=== PATIENT | female | born 1960 | race Caucasian/White ===

== ENCOUNTER 2017-10-26 14:12 | Inpatient (IN) ==
--- NOTE | 2017-10-26 14:54 | Emergency Department Note ---
Disposition Clinical Impression: Pneumonia Qualifiers: Pneumonia type: due to unspecified organism Laterality: right Lung location: lower lobe of lung Qualified Code(s): J18.1 - Lobar pneumonia, unspecified organism Urinary tract infection Qualifiers: Urinary tract infection type: acute cystitis Hematuria presence: without hematuria Qualified Code(s): N30.00 - Acute cystitis without hematuria Disposition: Admitted As Inpatient Condition: Fair Referrals: NONE,PCP [Primary Care Provider] - Forms: ED Satisfaction Letter Time of Disposition: 16:25 General Adult HPI - General Chief complaint: ED Upper Respiratory Infection Stated complaint: possible dehydration Time Seen by Provider: 10/26/17 14:28 Source: patient Limitations: no limitations Nursing Notes Reviewed: Yes Vital Signs Reviewed: Yes - History of Present Illness HPI Narrative: 56-year-old who has a history of lymphoma who states that she's not able to eat and keep an or drink and keep anything down. States she has been able to eat for several days. Also had a cough and was diagnosed with bronchitis and given penicillin by the urgent care. States she's not getting any better. Review of the records show the patient does have a B-cell lymphoma and is treated on a monthly basis. Pt Subjective Complaint: Cough, nausea vomiting, fever Onset (ago): day(s) Location: other (Patient states she is achy and generalized pain.) Pain Severity: moderate, severe Pain Scale: 9 Quality: aching Consistency: constant Improves with: nothing Worsens with: nothing Associated symptoms: Reports: cough, nausea/vomiting - Related Data Previous Rx's Medication Instructions Recorded DiphenhydraMINE [Benadryl] 25 mg PO Q6HR #30 capsule 02/03/16 predniSONE [PredniSONE] 60 mg PO DAILY 5 Days tablet 02/03/16 Allergies Allergy/AdvReac Type Severity Reaction Status Date / Time No Known Allergies Allergy Verified 02/02/16 21:24 All systems ED: reviewed and negative except as stated. Constitutional: Reports: fever. Denies: chills, weakness, weight change Eyes: Denies: eye pain, eye discharge, vision change ENT ED: Denies: ear pain, throat pain, dental pain, hearing loss, epistaxis, congestion, dysphagia Cardiovascular: Denies: chest pain, palpitations, dyspnea on exertion, edema, syncope Respiratory: Reports: cough. Denies: dyspnea, wheezes, hemoptysis, stridor Gastrointestinal: Denies: abdominal pain, nausea, vomiting, diarrhea, constipation, hematemesis, melena, hematochezia Genitourinary: Denies: dysuria, frequency, hematuria, discharge Musculoskeletal: Reports: arthralgia. Denies: back pain, neck pain, myalgia Integumentary: Denies: rash, abrasion, lesions Neurological: Denies: headache, weakness, numbness, paresthesias, confusion, abnormal gait, vertigo Psychiatric: Denies: anxiety, depression, suicidal thoughts, homicidal thoughts , auditory hallucinations, visual hallucinations Endocrine: Denies: fatigue Hematological/Lymphatic: Denies: easy bleeding, easy bruising Allergic/Immunologic: Denies: facial swelling, urticaria Past Medical History - Past Medical History Medical history: Reports: cancer, COPD, diabetes Psychiatric history: Reports: depression - Social History Smoking Status: Former smoker Smokeless Tobacco Status: No Alcohol use: Reports: none Drug use: Reports: none Physical Exam - General Limitations: no limitations General appearance: alert - Head Head exam: atraumatic, normocephalic, normal inspection - Eye Eye exam: Present: normal appearance, PERRL, EOMI - ENT ENT exam: normal exam, normal oropharynx, mucous membranes moist - Neck Neck exam: Present: normal inspection, full ROM, trachea midline - Chest Chest inspection: Present: normal inspection, symmetric chest wall rise - Respiratory Respiratory exam: Present: normal lung sounds bilaterally - Cardiovascular Cardiovascular exam: Present: regular rate, normal rhythm, normal heart sounds - Abdominal Exam Abdominal exam: Present: soft, Non-Tender. Absent: tenderness, distention, guarding, rebound, rigidity - Extremities Exam Extremities exam: Present: normal inspection, full ROM. Absent: tenderness, pedal edema - Expanded Lower Extremity Exam Neurovascular/Tendon exam: Absent: motor deficit, sensory deficit, tendon deficit Gait: observed and normal - Back Exam Back exam: Present: normal inspection, full ROM. Absent: tenderness - Neurological Exam Neurological exam: Present: alert, oriented X3 - Psychiatric Psychiatric exam: Present: normal affect, normal mood - Skin Skin exam: Present: warm, dry, intact, normal color Course - Reevaluation(s) Reevaluation #1: 56-year-old with a history of cough and congestion and also nausea vomiting comes in states she was diagnosed with bronchitis. Workup here included a chest x-ray shows a right lower lobe infiltrate she does have what appears to be UTI white count 25,000. Patient treated with IV antibiotics vital signs are stable patient will be admitted. Time: 16:57 Vital Signs Temperature 99.8 F H 10/26/17 14:22 Pulse Rate 119 10/26/17 14:22 Respiratory Rate 18 10/26/17 14:22 Blood Pressure 150/82 10/26/17 14:22 O2 Sat by Pulse Oximetry 88 10/26/17 14:22 Temperature 99.8 F H 10/26/17 14:22 Pulse Rate 119 10/26/17 14:22 Respiratory Rate 18 10/26/17 14:22 Blood Pressure 150/82 10/26/17 14:22 O2 Sat by Pulse Oximetry 88 10/26/17 14:22 Oxygen Delivery Oxygen Delivery Room Air Medical Decision Making - Lab Data Lab results reviewed: Yes I reviewed the patient's lab results. Result diagrams: 10/26/17 15:03 10/26/17 15:03 Lab Results 10/26/17 10/26/17 10/26/17 Range/Units 15:03 15:03 15:03 WBC 25.3 H (4.3-11.1) K/mcL RBC 4.81 (3.82-4.97) M/mcL Hgb 13.2 (11.5-15.4) g/dL Hct 40.0 (35.3-44.9) % MCV 83.2 (83.0-100.0) fL MCH 27.4 L (28.0-33.3) pg MCHC 33.0 (31.6-35.5) g/dL RDW 12.7 (11.5-14.5) % Plt Count 254 (140-400) K/mcL MPV 10.1 (9.4-12.4) fL Seg Neutrophils % 88.0 % Band Neutrophils % 2.0 (0-4) % Lymphocytes % 6.0 % Monocytes % 4.0 % Neutrophils # 22.8 H (1.6-8.9) K/mcL Lymphocytes # 1.5 (0.6-4.6) K/mcL Monocytes # 1.0 (0.0-1.3) K/mcL Nucleated RBCs/100 WBC 0.1 H (0) /100 WBC Reactive Lymphocytes Present A (Not Present) Platelet Estimate Normal (Normal) Sodium 128 L (136-145) mEq/L Potassium 3.8 (3.5-5.1) mEq/L Chloride 87 L (98-107) mEq/L Carbon Dioxide 29 (23-29) mEq/L BUN 8 (6-20) mg/dL Creatinine 0.74 (0.60-1.20) mg/dL Est GFR ( Amer) > 60 (> 60) Est GFR (Non-Af Amer) > 60 (> 60) BUN/Creatinine Ratio 11 (6-26) Glucose 398 H (70-105) mg/dL Calculated Osmolality 281 (280-300) Lactic Acid 1.2 (0.5-2.2) mmol/L Calcium 9.7 (8.6-10.3) mg/dL Total Bilirubin 0.7 (0.3-1.0) mg/dL Direct Bilirubin 0.3 H (0.0-0.2) mg/dL Indirect Bilirubin 0.4 (0.0-1.2) mg/dL AST 24 (13-39) Units/L ALT 39 (7-52) Units/L Alkaline Phosphatase 192 H (34-104) Units/L Troponin I (< 0.04) ng/mL Serum Total Protein 6.6 (6.4-8.9) g/dL Albumin 3.5 (3.5-5.7) g/dL Globulin 3.1 (2.4-3.5) g/dL Albumin/Globulin Ratio 1.1 (1.1-2.2) Amylase < 10 L (29-103) Units/L Lipase 7 L (11-82) Units/L Urine Color (Yellow) Urine Clarity (Clear) Urine pH (5.0-8.0) pH Units Ur Specific [place] (1.010-1.025) Urine Protein (Neg-Trace) mg/dL Urine Glucose (UA) (Normal) mg/dL Urine Ketones (Negative) mg/dL Urine Blood (Negative) Urine Nitrite (Negative) Urine Bilirubin (Negative) Urine Urobilinogen (Normal) mg/dL Ur Leukocyte Esterase (Negative) Urine Microscopic RBC (0-3) per hpf Urine Microscopic WBC (0-3) per hpf Ur Squamous Epith Cells (None-Few) per lpf Urine Bacteria (None-Few) per hpf Hyaline Casts (None-Few) per lpf Ur Culture Indicated? (NO) 10/26/17 10/26/17 Range/Units 15:03 15:31 WBC (4.3-11.1) K/mcL RBC (3.82-4.97) M/mcL Hgb (11.5-15.4) g/dL Hct (35.3-44.9) % MCV (83.0-100.0) fL MCH (28.0-33.3) pg MCHC (31.6-35.5) g/dL RDW (11.5-14.5) % Plt Count (140-400) K/mcL MPV (9.4-12.4) fL Seg Neutrophils % % Band Neutrophils % (0-4) % Lymphocytes % % Monocytes % % Neutrophils # (1.6-8.9) K/mcL Lymphocytes # (0.6-4.6) K/mcL Monocytes # (0.0-1.3) K/mcL Nucleated RBCs/100 WBC (0) /100 WBC Reactive Lymphocytes (Not Present) Platelet Estimate (Normal) Sodium (136-145) mEq/L Potassium (3.5-5.1) mEq/L Chloride (98-107) mEq/L Carbon Dioxide (23-29) mEq/L BUN (6-20) mg/dL Creatinine (0.60-1.20) mg/dL Est GFR ( Amer) (> 60) Est GFR (Non-Af Amer) (> 60) BUN/Creatinine Ratio (6-26) Glucose (70-105) mg/dL Calculated Osmolality (280-300) Lactic Acid (0.5-2.2) mmol/L Calcium (8.6-10.3) mg/dL Total Bilirubin (0.3-1.0) mg/dL Direct Bilirubin (0.0-0.2) mg/dL Indirect Bilirubin (0.0-1.2) mg/dL AST (13-39) Units/L ALT (7-52) Units/L Alkaline Phosphatase (34-104) Units/L Troponin I 0.03 (< 0.04) ng/mL Serum Total Protein (6.4-8.9) g/dL Albumin (3.5-5.7) g/dL Globulin (2.4-3.5) g/dL Albumin/Globulin Ratio (1.1-2.2) Amylase (29-103) Units/L Lipase (11-82) Units/L Urine Color Dark Yellow (Yellow) Urine Clarity Cloudy A (Clear) Urine pH 6.0 (5.0-8.0) pH Units Ur Specific [place] 1.025 (1.010-1.025) Urine Protein 100 H (Neg-Trace) mg/dL Urine Glucose (UA) 500 H (Normal) mg/dL Urine Ketones 80 H (Negative) mg/dL Urine Blood Negative (Negative) Urine Nitrite Negative (Negative) Urine Bilirubin Moderate H (Negative) Urine Urobilinogen Normal (Normal) mg/dL Ur Leukocyte Esterase Small H (Negative) Urine Microscopic RBC 0-3 (0-3) per hpf Urine Microscopic WBC 30-50 H (0-3) per hpf Ur Squamous Epith Cells Many H (None-Few) per lpf Urine Bacteria Few (None-Few) per hpf Hyaline Casts Few (None-Few) per lpf Ur Culture Indicated? NO. (NO) - Radiology Data Radiology results reviewed: Yes I reviewed the patient's radiology results. Chest X-Ray 10/26/17 14:49 IMPRESSION: Right lower lobe pneumonia D/ / Juan Pablo Ferguson MD / Juan Pablo Ferguson MD Interpreting Provider: Juan Pablo Ferguson MD - EKG Data EKG #1 EKG shows normal: sinus rhythm Rate: tachycardia Rhythm: NSR Interpretation: nonspecific ST-T wave changes
[2017-10-26 15:14] LABS: Nucleated Red Blood Cells 0.1 /100 WBC (0)
[2017-10-26 15:15] LABS: Hemoglobin 13.2 g/dL (11.5-15.4); Mean Corpuscular Hemoglobin 27.4 pg (28.0-33.3); Mean Corpuscular Volume 83.2 fL (83.0-100.0); Mean Platelet Volume 10.1 fL (9.4-12.4); Platelet Count 254 K/mcL (140-400); Red Blood Count 4.81 M/mcL (3.82-4.97); Red Cell Distribution Width 12.7 % (11.5-14.5)
[2017-10-26 15:34] LABS: Alanine Aminotransferase 39 Units/L (7-52); Albumin 3.5 g/dL (3.5-5.7); Albumin/Globulin Ratio 1.1 (1.1-2.2); Alkaline Phosphatase 192 Units/L (34-104); Amylase < 10 Units/L (29-103); Aspartate Amino Transferase 24 Units/L (13-39); BUN/Creatinine Ratio 11 (6-26); Bilirubin,Direct 0.3 mg/dL (0.0-0.2); Bilirubin,Indirect 0.4 mg/dL (0.0-1.2); Bilirubin,Total 0.7 mg/dL (0.3-1.0); Blood Urea Nitrogen 8 mg/dL (6-20); Calcium 9.7 mg/dL (8.6-10.3); Carbon Dioxide 29 mEq/L (23-29); Chloride 87 mEq/L (98-107); Globulin 3.1 g/dL (2.4-3.5); Glucose 398 mg/dL (70-105); Lipase 7 Units/L (11-82); Osmolality,Calculated 281 (280-300); Potassium 3.8 mEq/L (3.5-5.1); Sodium 128 mEq/L (136-145); Total Protein 6.6 g/dL (6.4-8.9); eGFR For African Americans > 60 (> 60); eGFR For Non-African Americans > 60 (> 60)
[2017-10-26 15:42] LABS: Bilirubin,Urine Moderate (Negative); Blood,Urine Negative (Negative); Clarity,Urine Cloudy (Clear); Color,Urine Dark Yellow (Yellow); Glucose,Urine (UA) 500 mg/dL (Normal); Ketones,Urine 80 mg/dL (Negative); Leukocyte Esterase,Urine Small (Negative); Nitrite,Urine Negative (Negative); Protein,Urine 100 mg/dL (Neg-Trace); Specific Gravity,Urine 1.025 (1.010-1.025); Urobilinogen,Urine Normal (Normal)
[2017-10-26 15:45] LABS: Bacteria,Urine Few per hpf (None-Few); RBC,Urine 0-3 per hpf (0-3); Squamous Epithelial Cell,Urine Many per lpf (None-Few); WBC,Urine 30-50 per hpf (0-3)
[2017-10-26 15:48] LABS: Lymphocytes # 1.5 K/mcL (0.6-4.6); Neutrophils # 22.8 K/mcL (1.6-8.9); Platelet Estimate Normal (Normal); Reactive Lymphocytes Present (Not Present)
[2017-10-26] MEDS ORDERED: 0.9 % Sodium Chloride 1,000 ML IVC ONE (15:56)
[2017-10-26 15:58] LABS: Hyaline Casts,Urine Few per lpf (None-Few)
[2017-10-26] MEDS ORDERED: cefTRIAXone 1,000 MG in Water for inj. (sterile) 10 ML IVP ONE (16:02)
[2017-10-26] MEDS ORDERED: Piperacillin/Tazobactam 3.375 GM in D5% in Water (Mini-Bag+) 100 ML IVPB ONE (16:22)
[2017-10-26] MEDS ORDERED: Piperacillin/Tazobactam 3.375 GM in Water for inj. (sterile) 20 ML IVP ONE (16:46)
[2017-10-26] MEDS ORDERED: Ondansetron 4 MG/2 ML VIAL IVP PRN (17:30)
[2017-10-26] MEDS ORDERED: Dextrose Gel 15 GM/37.5 ML TUBE PO PRN ×2 (17:30)
[2017-10-26] MEDS ORDERED: Naloxone 0.4 MG/ML INJ IVP PRN (17:30)
[2017-10-26] MEDS ORDERED: *HR* Dextrose 50 % in Water (Syg) 50 ML SYRINGE IVP PRN (17:30)
[2017-10-26] MEDS ORDERED: D5% in Water 1,000 ML IVC PRN (17:30)
[2017-10-26] MEDS ORDERED: *HR* Promethazine 25 MG/ML VIAL IVP PRN (17:30)
[2017-10-26] MEDS ORDERED: ALPRAZolam 0.5 MG TABLET PO PRN (17:35)
--- NOTE | 2017-10-26 17:49 | Internal Med History&Physical ---
<Brandon Napier J - Last Filed: 10/26/17 18:48> Date of Encounter: 10/26/17 Time of Encounter: 17:45 Assessment and Plan (1) Pneumonia Status: Acute Patient has dyspnea, cough and leukocytosis. Shortness of breath and cough has been persistent since October 11. Patient is also immunocompromised with B- cell lymphoma. She wears 3 L nasal cannula, however is not requiring 6 L nasal cannula to maintain O2 saturations greater than 92%. Remains hemodynamically stable Start broad-spectrum antibiotics including vancomycin, Zosyn and ceftriaxone We will start Scheduled bronchodilators to help with shortness of breath and wheezing She does not appear to be in septic shock as artery received 2 L of IV fluid I will continue gentle rehydration 75 ML per hour 0.9% normal saline Blood cultures sent Obtain Urine culture Obtain sputum culture Oxygen at 6 L per mask, weaned to nasal cannula as appropriately and is due to greater than 90% Congestive temperature, continues S PO2 monitoring CBC D, BMP in the a.m. Qualifiers: Pneumonia type: due to unspecified organism Laterality: right Lung location: lower lobe of lung Qualified Code(s): J18.1 - Lobar pneumonia, unspecified organism (2) Sepsis Status: Acute Sepsis secondary to pneumonia and UTI. Starting empiric antibody therapy. The patient is not septic shock replace fluid volume as appropriate. See further plans above Qualifiers: Qualified Code(s): A41.9 - Sepsis, unspecified organism (3) Hypoxia Status: Acute secondary to pna and sepsis. see plan above (4) Urinary tract infection Status: Acute Continue ceftriaxone send urine for culture- follow culture results Qualifiers: Urinary tract infection type: acute cystitis Hematuria presence: without hematuria Qualified Code(s): N30.00 - Acute cystitis without hematuria (5) COPD (chronic obstructive pulmonary disease) Status: Acute Stable. start scheduled bronchodilators Qualifiers: Emphysema type: unspecified Qualified Code(s): J43.9 - Emphysema, unspecified (6) DM (diabetes mellitus) Status: Acute LSSIC with AC/HS accucheck and diabetic diet Qualifiers: Qualified Code(s): E11.9 - Type 2 diabetes mellitus without complications; Z79.4 - terminologist (current) use of insulin; Z79.4 - [facility] (current) use of insulin; Z79.4 - [facility] (current) use of insulin; Z79.4 - terminologist (current ) use of insulin (7) DVT prophylaxis Status: Acute Heparin 5000 units subcutaneous twice a day Internal Medicine - H&P: HPI Chief complaint: Cough, shortness of breath, nausea and vomiting Admitted From: Home Plans for Post Hospital Care: Home History of present illness: Ms. 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 COPD and diabetes. She presents today with a 2 day history of nausea and vomiting, reporting that she is unable to keep food or fluids down. She reports she has had a cough productive of clear sputum and dyspnea for 3 weeks. She admits to postnasal drip, nasal and sinus congestion as well as chest congestion , fever and chills. States that she went to urgent care 2 days ago was diagnosed with bronchitis and given penicillin and sent home. She reports that she has not got any better so she came to the emergency department for further treatment. Workup in the ED included urinalysis which showed small leukoesterase and cloudy urine additionally she received chest x-ray showed right lower lobe pneumonia. Past Med Surg Social Fam HX - Past Medical History Medical history: cancer, COPD, diabetes Psychiatric history: depression - Social History Smoking Status: Former smoker Smokeless Tobacco Status: No Alcohol use: none Drug use: none - Additional Family History Additional family history: She reports a family history of colon cancer but is unsure which family member Internal Medicine - H&P: Meds ALPRAZolam [Xanax 0.5 MG Tablet] 0.5 mg PO HS PRN 10/26/17 [History] Albuterol Sulfate [Ventolin Hfa] 2 puff IH Q6H PRN 10/26/17 [History] Cetirizine HCl [All Day Allergy] 10 mg PO DAILY 10/26/17 [History] Duloxetine HCl [Cymbalta] 60 mg PO DAILY 10/26/17 [History] Insulin ASPART [NovoLOG] 2 - 10 unit SQ TIDWM 10/26/17 [History] Insulin Glargine,Hum.rec.anlog [Lantus Solostar] 60 unit SQ BID 10/26/17 [ History] Levothyroxine Sodium [Levoxyl] 100 mcg PO DAILY 10/26/17 [History] Pantoprazole Sodium [Protonix] 40 mg PO DAILY 12/30/17 [History] Sertraline [Zoloft] 100 mg PO DAILY 10/26/17 [History] Trazodone HCl 100 mg PO HS 10/26/17 [History] metFORMIN [Glucophage] 500 mg PO BID 10/26/17 [History] Benzonatate [Tessalon] 200 mg PO TID PRN #30 capsule 10/30/17 [Rx] levoFLOXacin [Levaquin] 750 mg PO DAILY #7 tablet 10/30/17 [Rx] Calcium Citrate/Vitamin D2 [Calcium with Vit D Tablet] 1 each PO BID #60 tablet 11/15/17 [Rx] Exemestane [Aromasin] 25 mg PO DAILY #30 tablet 11/15/17 [Rx] Facial Mask [Face Mask] 1 each AD #1 pkg 11/15/17 [Rx] GuaiFENesin/Dextromethorphan [Robitussin Cough-Chest Dm Liq] 10 ml PO Q4H PRN # 237 liquid 11/15/17 [Rx] 3 Allergy/AdvReac Type Severity Reaction Status Date / Time No Known Allergies Allergy Verified 11/15/17 14:01 All Systems PM: A 10-system review of systems was performed and is negative for pertinent findings except as documented above in the HPI. Review of systems: REVIEW OF SYSTEMS GENERAL: Negative for any nausea, vomiting, fevers, chills, or weight loss. NEUROLOGIC: Negative for any blurry vision, blind spots, double vision, facial asymmetry, dysphagia, dysarthria, hemiparesis, hemisensory deficits, vertigo, ataxia. HEENT: Negative for any head trauma, neck trauma, neck stiffness, photophobia, phonophobia, sinusitis, rhinitis. CARDIAC: Negative for any chest pain, positive for tachycardia, dyspnea, there is a proximal nocturnal dyspnea and orthopnea PULMONARY: Positive for cough, dyspnea GASTROINTESTINAL: Negative for any abdominal pain, nausea, vomiting, bright red blood per rectum, melena. GENITOURINARY: Negative for any dysuria, hematuria, incontinence. INTEGUMENTARY: Negative for any rashes, cuts, insect bites. RHEUMATOLOGIC: Negative for any joint pains, photosensitive rashes, history of vasculitis or kidney problems. HEMATOLOGIC: Negative for any abnormal bruising, frequent infections or bleeding. - Constitutional Vitals: Temp Pulse Resp BP Pulse Ox 99.8 F H 119 18 150/82 88 10/26/17 14:22 10/26/17 14:22 10/26/17 14:22 10/26/17 14:22 10/26/17 14:22 General appearance: Present: cooperative, A&O X 3, no acute distress, answers questions appropriately Exam: PHYSICAL EXAMINATION: GENERAL: The patient is a well-developed, well-nourished male in no apparent distress. He is alert and oriented x3. VITAL SIGNS: Temperature 98.4, pulse 72, respirations 18, blood pressure 146/78 , and O2 saturation 96% on room air. HEENT: Head is normocephalic and atraumatic. Extraocular muscles are intact. Pupils are equal, round, and reactive to light and accommodation. Nares appeared normal. Mouth is well hydrated and without lesions. Mucous membranes are moist. Posterior pharynx clear of any exudate or lesions. NECK: Supple. No carotid bruits. No lymphadenopathy or thyromegaly. LUNGS: Scattered rhonchi, more pronounced in the right lobe and left. Rt lobe with rhonchi in HEART: Tachycardia, without murmurs, rubs or gallops. ABDOMEN: Soft, nontender, and nondistended. Positive bowel sounds. No hepatosplenomegaly was noted. EXTREMITIES: Without any cyanosis, clubbing, rash, lesions or edema. NEUROLOGIC: Cranial nerves II through XII are grossly intact. PSYCHIATRIC: Flat affect, but denies suicidal or homicidal ideations. SKIN: No ulceration or induration present. Internal Med - H&P Results - Labs CBC & Chem 7: 10/26/17 15:03 10/26/17 15:03 - EKG Data -: EKG Interpreted by Myself EKG shows normal: sinus rhythm Rate: normal - EKG Data Prior EKG available for review: yes Interpretation IM: normal EKG EKG comments: Normal sinus rhythm 10/26/17 18:49 - Diagnostic Studies Chest x-ray Status: image reviewed by me Additional comments: RLL infiltrate concerning for PNA <Miesha Ceron - Last Filed: 11/22/17 09:39> Date of Encounter: 11/22/17 Internal Medicine - H&P: HPI History of present illness: Ms. Park is a 56 year old female All Systems PM: A 10-system review of systems was performed and is negative for pertinent findings except as documented above in the HPI. - Constitutional Vitals: Temp Pulse Resp BP Pulse Ox 98.1 F 80 16 112/71 97 10/31/17 15:57 10/31/17 15:57 10/31/17 16:00 10/31/17 15:57 10/31/17 16:00 Internal Med - H&P Results - Labs CBC & Chem 7: 10/30/17 10:59 10/30/17 08:10 - Attending Attestation I personally and independently interviewed and examined the patient with INTERIOR DESIGN CONSULTANT, and I reviewed the patient's medical record with her. I am in agreement with the assessment and proposed treatment plan. I discussed my findings and recommendation with the patient and answer all questions. The patient's medical records were edited to accurately reflect this encounter.
[2017-10-26] MEDS: Ipratropium/Albuterol Neb 3 ML IH SCH (20:06)
[2017-10-26] MEDS: Insulin DETEMIR 100 UNIT/ML X5UNITS SQ SCH (21:33)
[2017-10-26] MEDS: *HR* Heparin 5,000 UNIT/ML VIAL SQ SCH (21:33)
[2017-10-26] MEDS: traZODone 50 MG TABLET PO SCH (21:33)
[2017-10-26] MEDS: 0.9 % Sodium Chloride 1,000 ML IVC SCH ×2 (21:34→22:18)
[2017-10-26] MEDS: Insulin LISPRO 300 UNITS/3 ML VIAL SQ SCH ×2 (21:39→22:18)
[2017-10-26] MEDS ORDERED: Vancomycin 2,000 MG in D5% in Water 500 ML IVPB ONE (22:00)
[2017-10-26] MEDS ORDERED: Vancomycin 1,750 MG in D5% in Water 250 ML IVPB SCH (22:00)
[2017-10-26] MEDS: Benzonatate 100 MG CAPSULE PO PRN (23:42)
[2017-10-27] MEDS: Ipratropium/Albuterol Neb 3 ML IH SCH ×7 (00:25→23:34)
[2017-10-27] MEDS: Piperacillin/Tazobactam 3.375 GM/200 ML BAG IVPB SCH ×3 (01:30→14:19)
[2017-10-27 05:50] LABS: Basophils # 0.1 K/mcL (0.0-0.2); Basophils % 0.7 %; Eosinophils % 0.2 %; Hematocrit 34.5 % (35.3-44.9); Immature Granulocytes % 6.2 % (0-4); Lymphocytes # 0.5 K/mcL (0.6-4.6); Lymphocytes % 3.2 %; Mean Corpuscular Hemoglobin 27.3 pg (28.0-33.3); Mean Corpuscular Volume 82.7 fL (83.0-100.0); Monocytes # 1.4 K/mcL (0.0-1.3); Neutrophils # 13.8 K/mcL (1.6-8.9); Platelet Count 214 K/mcL (140-400); Red Blood Count 4.17 M/mcL (3.82-4.97); Red Cell Distribution Width 12.8 % (11.5-14.5); Segmented Neutrophils % 81.7 %
[2017-10-27 05:58] LABS: Alanine Aminotransferase 35 Units/L (7-52); Albumin 3.1 g/dL (3.5-5.7); Albumin/Globulin Ratio 1.1 (1.1-2.2); Alkaline Phosphatase 163 Units/L (34-104); Aspartate Amino Transferase 28 Units/L (13-39); BUN/Creatinine Ratio 10 (6-26); Bilirubin,Total 0.6 mg/dL (0.3-1.0); Blood Urea Nitrogen 7 mg/dL (6-20); Calcium 9.3 mg/dL (8.6-10.3); Carbon Dioxide 34 mEq/L (23-29); Chloride 93 mEq/L (98-107); Globulin 2.9 g/dL (2.4-3.5); Glucose 363 mg/dL (70-105); Osmolality,Calculated 289 (280-300); Potassium 3.3 mEq/L (3.5-5.1); Sodium 133 mEq/L (136-145); eGFR For African Americans > 60 (> 60); eGFR For Non-African Americans > 60 (> 60)
[2017-10-27] MEDS: *HR* Heparin 5,000 UNIT/ML VIAL SQ SCH ×2 (06:07→17:28)
[2017-10-27 06:13] LABS: Hemoglobin 11.4 g/dL (11.5-15.4)
[2017-10-27] MEDS: Loratadine 10 MG TABLET PO SCH (08:33)
[2017-10-27] MEDS: (Exemestane [Aromasin] 25 MG) PO SCH (08:33)
[2017-10-27] MEDS: Insulin LISPRO 300 UNITS/3 ML VIAL SQ SCH ×4 (08:35→21:18)
[2017-10-27] MEDS: Insulin DETEMIR 100 UNIT/ML X5UNITS SQ SCH ×2 (08:39→21:33)
[2017-10-27] MEDS ORDERED: cefTRIAXone 1,000 MG in Water for inj. (sterile) 10 ML IVP SCH (09:00)
[2017-10-27] MEDS: Vancomycin 1,250 MG in D5% in Water 250 ML IVPB SCH ×2 (11:03→22:43)
[2017-10-27] MEDS: 0.9 % Sodium Chloride 1,000 ML IVC SCH ×2 (15:58→16:02)
--- NOTE | 2017-10-27 17:10 | Internal Med Progress Note ---
Date of Encounter: 10/27/17 Time of Encounter: 10:30 - Assessment and plan (1) Sepsis Current Visit: Yes Status: Acute Assessment and plan: Sepsis, present on admission - secondary to right lower lobe community-acquired pneumonia, likely bacterial Continue IV Zosyn, IV Vancomycin, DuoNeb breathing treatment, O2 via NC Chest x-ray - right lower lobe pneumonia Lactic acid - 1.2 WBC - 16.9 Troponin - 0.03 Cultures - pending Cardiac telemetry, pulse ox, labs in a.m., monitor closely Qualifiers: Qualified Code(s): A41.9 - Sepsis, unspecified organism (2) Pneumonia Current Visit: Yes Status: Acute Assessment and plan: Right lower lobe community-acquired pneumonia, likely bacterial, present on admission with sepsis Plan as above Qualifiers: Pneumonia type: due to unspecified organism Laterality: right Lung location: lower lobe of lung Qualified Code(s): J18.1 - Lobar pneumonia, unspecified organism (3) Urinary tract infection Current Visit: Yes Status: Acute Assessment and plan: UTI, present on admission, likely gram-negative bacilli Continue IV antibiotics Cultures - pending Qualifiers: Urinary tract infection type: acute cystitis Hematuria presence: without hematuria Qualified Code(s): N30.00 - Acute cystitis without hematuria (4) COPD (chronic obstructive pulmonary disease) Current Visit: Yes Status: Acute Assessment and plan: COPD with acute exacerbation Continue DuoNeb breathing treatment, IV antibiotics, O2 via NC Qualifiers: Emphysema type: unspecified Qualified Code(s): J43.9 - Emphysema, unspecified (5) DM (diabetes mellitus) Current Visit: Yes Status: Chronic Assessment and plan: Type 2 diabetes mellitus, insulin-dependent, hyperglycemia Continue insulin sliding scale, Levemir, glucose checks Qualifiers: Diabetes mellitus type: type 2 Diabetes mellitus complication status: without complication Diabetes mellitus usp insulin use: with usp use Qualified Code(s): E11.9 - Type 2 diabetes mellitus without complications ; Z79.4 - senior living (current) use of insulin; Z79.4 - plier worker (current) use of insulin; Z79.4 - plier worker (current) use of insulin; Z79.4 - plier worker ( current) use of insulin (6) Anxiety with depression Current Visit: Yes Status: Chronic Assessment and plan: Chronic, stable Continue home dose of Cymbalta, Zoloft, Trazodone, Xanax (7) DVT prophylaxis Current Visit: Yes Status: Acute Assessment and plan: Heparin subcutaneous - Time Spent With Patient 25 - 35 minutes - Subjective Interval history: Examined this morning. Patient is awake and alert. Not in any distress. Denies chest pain. Complains of mild shortness of breath and mild cough. Mild fever spike this morning. Hemodynamically stable. Complains of mild generalized weakness. No other acute events or complaints. Admitted for pneumonia and sepsis with COPD exacerbation and UTI. Symptoms are slowly improving. - Constitutional Vitals: Temp Pulse Resp BP Pulse Ox 99.7 F H 89 18 110/72 94 10/27/17 15:59 10/27/17 15:59 10/27/17 16:02 10/27/17 15:59 10/27/17 16:02 General appearance: Present: cooperative, A&O X 3, morbidly obese, pleasant, no acute distress, answers questions appropriately - Head Head exam: Present: atraumatic - Eye Eye exam: Present: EOMI - ENT ENT exam: Present: mucous membranes moist - Respiratory Respiratory exam: Present: wheezes (Mild bilateral). Absent: accessory muscle use, chest wall tenderness, rales, respiratory distress, rhonchi, tachypnea - Cardiovascular Cardiovascular exam: Present: RRR, +S1, +S2 - GI/Abdominal GI/Abdominal exam: Present: soft (Obese). Absent: distended, firm, guarding, tenderness - Extremities Exam Extremities exam: Present: pedal edema (Mild bilateral), radial pulses palpable and symmetrical. Absent: calf tenderness, cyanotic - Neurological Exam Neurological exam: Present: alert, oriented X3, no focal deficits. Absent: facial droop, speech deficit Internal Medicine: Result - Labs CBC & Chem 7: 10/27/17 05:11 10/27/17 05:11 Labs: Short CBC 10/27/17 Range/Units 05:11 WBC 16.9 H (4.3-11.1) K/mcL Hgb 11.4 L D (11.5-15.4) g/dL Hct 34.5 L (35.3-44.9) % Plt Count 214 (140-400) K/mcL Neutrophils # 13.8 H (1.6-8.9) K/mcL BMP 10/27/17 05:11 Sodium 133 L Potassium 3.3 L Chloride 93 L Carbon Dioxide 34 H BUN 7 Creatinine 0.73 Glucose 363 H Calcium 9.3 Liver Function 10/27/17 Range/Units 05:11 Total Bilirubin 0.6 (0.3-1.0) mg/dL AST 28 (13-39) Units/L ALT 35 (7-52) Units/L Alkaline Phosphatase 163 H (34-104) Units/L Albumin 3.1 L (3.5-5.7) g/dL Consult Discharge Plan - Plan Referrals: NONE,PCP [Primary Care Provider] -
[2017-10-27] MEDS: traZODone 50 MG TABLET PO SCH (21:16)
[2017-10-27] MEDS: Benzonatate 100 MG CAPSULE PO PRN (21:48)
[2017-10-28] MEDS: Piperacillin/Tazobactam 3.375 GM/200 ML BAG IVPB SCH ×4 (00:20→22:27)
[2017-10-28] MEDS: Ipratropium/Albuterol Neb 3 ML IH SCH ×5 (03:46→21:06)
[2017-10-28 05:33] LABS: Hematocrit 33.5 % (35.3-44.9); Mean Corpuscular HGB Conc 32.8 g/dL (31.6-35.5); Mean Corpuscular Hemoglobin 27.6 pg (28.0-33.3); Mean Platelet Volume 10.1 fL (9.4-12.4); Platelet Count 195 K/mcL (140-400); Red Blood Count 3.99 M/mcL (3.82-4.97); Red Cell Distribution Width 12.8 % (11.5-14.5)
[2017-10-28 05:51] LABS: BUN/Creatinine Ratio 10 (6-26); Blood Urea Nitrogen 7 mg/dL (6-20); Calcium 9.1 mg/dL (8.6-10.3); Carbon Dioxide 34 mEq/L (23-29); Chloride 93 mEq/L (98-107); Glucose 355 mg/dL (70-105); Osmolality,Calculated 288 (280-300); Potassium 3.4 mEq/L (3.5-5.1); Sodium 133 mEq/L (136-145); eGFR For African Americans > 60 (> 60); eGFR For Non-African Americans > 60 (> 60)
[2017-10-28 06:11] LABS: Lymphocytes # 0.6 K/mcL (0.6-4.6); Monocytes # 0.3 K/mcL (0.0-1.3); Neutrophils # 12.9 K/mcL (1.6-8.9); Platelet Estimate Normal (Normal)
[2017-10-28] MEDS: *HR* Heparin 5,000 UNIT/ML VIAL SQ SCH ×2 (07:01→18:24)
[2017-10-28] MEDS: Loratadine 10 MG TABLET PO SCH (08:28)
[2017-10-28] MEDS: (Exemestane [Aromasin] 25 MG) PO SCH (08:28)
[2017-10-28] MEDS: Insulin LISPRO 300 UNITS/3 ML VIAL SQ SCH ×4 (08:28→21:27)
[2017-10-28] MEDS: Insulin DETEMIR 100 UNIT/ML X5UNITS SQ SCH ×2 (12:57→21:27)
[2017-10-28] MEDS: *HR* Acetylcysteine 20% 600 MG/3 ML ORAL SYRINGE PO SCH ×2 (12:58→21:27)
[2017-10-28] MEDS: Vancomycin 2,000 MG in D5% in Water 500 ML IVPB SCH (13:03)
--- NOTE | 2017-10-28 15:53 | Internal Med Progress Note ---
Date of Encounter: 10/28/17 Time of Encounter: 10:20 - Assessment and plan (1) Sepsis Current Visit: Yes Status: Acute Assessment and plan: Sepsis, present on admission - secondary to right lower lobe community-acquired pneumonia, likely bacterial - slowly improving Continue IV Zosyn, IV Vancomycin, DuoNeb breathing treatment, O2 via NC Chest x-ray - right lower lobe pneumonia Lactic acid - 1.2 WBC - 14.0 Troponin - 0.03 Cultures - pending at this time Cardiac telemetry, pulse ox, labs in a.m., monitor closely Qualifiers: Qualified Code(s): A41.9 - Sepsis, unspecified organism (2) Pneumonia Current Visit: Yes Status: Acute Assessment and plan: Right lower lobe community-acquired pneumonia, likely bacterial, present on admission with sepsis Plan as above Qualifiers: Pneumonia type: due to unspecified organism Laterality: right Lung location: lower lobe of lung Qualified Code(s): J18.1 - Lobar pneumonia, unspecified organism (3) Urinary tract infection Current Visit: Yes Status: Acute Assessment and plan: UTI, present on admission, likely gram-negative bacilli Continue IV antibiotics Cultures - pending at this time Qualifiers: Urinary tract infection type: acute cystitis Hematuria presence: without hematuria Qualified Code(s): N30.00 - Acute cystitis without hematuria (4) COPD (chronic obstructive pulmonary disease) Current Visit: Yes Status: Acute Assessment and plan: COPD with acute exacerbation Continue DuoNeb breathing treatment, IV antibiotics, O2 via NC Qualifiers: Emphysema type: unspecified Qualified Code(s): J43.9 - Emphysema, unspecified (5) DM (diabetes mellitus) Current Visit: Yes Status: Chronic Assessment and plan: Type 2 diabetes mellitus, insulin-dependent, hyperglycemia Continue insulin sliding scale, Levemir, glucose checks Qualifiers: Diabetes mellitus type: type 2 Diabetes mellitus complication status: without complication Diabetes mellitus intermission coordinator insulin use: with intermission coordinator use Qualified Code(s): E11.9 - Type 2 diabetes mellitus without complications ; Z79.4 - superintendent terminal (current) use of insulin; Z79.4 - jail (current) use of insulin; Z79.4 - superintendent terminal (current) use of insulin; Z79.4 - jail ( current) use of insulin (6) Anxiety with depression Current Visit: Yes Status: Chronic Assessment and plan: Chronic, stable Continue home dose of Cymbalta, Zoloft, Trazodone, Xanax PRN (7) DVT prophylaxis Current Visit: Yes Status: Acute Assessment and plan: Heparin subcutaneous - Time Spent With Patient 25 - 35 minutes - Subjective Interval history: Examined this morning. Patient is awake and alert. Not in any distress. Denies chest pain or shortness of breath. Mild cough, and states that she is unable to bring up any sputum. Mild fever spike this morning. States she feels better. Hemodynamically stable. Complains of mild generalized weakness. No other acute events or complaints. Admitted for pneumonia and sepsis with COPD exacerbation and UTI. Symptoms are slowly improving. - Constitutional Vitals: Temp Pulse Resp BP Pulse Ox 98.4 F 82 14 113/70 93 10/28/17 15:14 10/28/17 15:14 10/28/17 15:14 10/28/17 15:14 10/28/17 15:14 General appearance: Present: cooperative, A&O X 3, morbidly obese, pleasant, no acute distress, answers questions appropriately - Head Head exam: Present: atraumatic - Eye Eye exam: Present: EOMI - ENT ENT exam: Present: mucous membranes moist - Respiratory Respiratory exam: Present: wheezes (Mild bilateral). Absent: accessory muscle use, chest wall tenderness, rales, respiratory distress, rhonchi, tachypnea - Cardiovascular Cardiovascular exam: Present: RRR, +S1, +S2 - GI/Abdominal GI/Abdominal exam: Present: soft (Obese). Absent: distended, firm, guarding, tenderness - Extremities Exam Extremities exam: Present: pedal edema (Mild bilateral), radial pulses palpable and symmetrical. Absent: calf tenderness, cyanotic - Neurological Exam Neurological exam: Present: alert, CN II-XII intact, oriented X3, no focal deficits. Absent: facial droop, speech deficit Internal Medicine: Result - Labs CBC & Chem 7: 10/28/17 05:01 10/28/17 05:01 Labs: Short CBC 10/28/17 Range/Units 05:01 WBC 14.0 H (4.3-11.1) K/mcL Hgb 11.0 L (11.5-15.4) g/dL Hct 33.5 L (35.3-44.9) % Plt Count 195 (140-400) K/mcL Neutrophils # 12.9 H (1.6-8.9) K/mcL BMP 10/28/17 05:01 Sodium 133 L Potassium 3.4 L Chloride 93 L Carbon Dioxide 34 H BUN 7 Creatinine 0.68 Glucose 355 H Calcium 9.1 Consult Discharge Plan - Plan Referrals: NONE,PCP [Primary Care Provider] -
[2017-10-28] MEDS: traZODone 50 MG TABLET PO SCH (21:28)
[2017-10-28] MEDS: Vancomycin 1,250 MG in D5% in Water 250 ML IVPB SCH (21:38)
[2017-10-29] MEDS: *HR* Acetylcysteine 20% 600 MG/3 ML ORAL SYRINGE PO SCH ×5 (00:10→23:17)
[2017-10-29] MEDS: Vancomycin 2,000 MG in D5% in Water 500 ML IVPB SCH ×3 (00:10→23:30)
[2017-10-29] MEDS: Ipratropium/Albuterol Neb 3 ML IH SCH ×7 (00:15→23:28)
[2017-10-29 04:25] LABS: Hematocrit 33.9 % (35.3-44.9); Hemoglobin 10.8 g/dL (11.5-15.4); Mean Corpuscular HGB Conc 31.9 g/dL (31.6-35.5); Mean Corpuscular Hemoglobin 27.3 pg (28.0-33.3); Mean Corpuscular Volume 85.6 fL (83.0-100.0); Mean Platelet Volume 10.1 fL (9.4-12.4); Platelet Count 212 K/mcL (140-400); Red Blood Count 3.96 M/mcL (3.82-4.97); Red Cell Distribution Width 12.8 % (11.5-14.5)
[2017-10-29 04:38] LABS: BUN/Creatinine Ratio 10 (6-26); Blood Urea Nitrogen 6 mg/dL (6-20); Calcium 8.9 mg/dL (8.6-10.3); Carbon Dioxide 38 mEq/L (23-29); Chloride 94 mEq/L (98-107); Glucose 290 mg/dL (70-105); Osmolality,Calculated 290 (280-300); Potassium 3.6 mEq/L (3.5-5.1); Sodium 136 mEq/L (136-145); eGFR For African Americans > 60 (> 60); eGFR For Non-African Americans > 60 (> 60)
[2017-10-29 04:58] LABS: Lymphocytes # 1.3 K/mcL (0.6-4.6); Monocytes # 1.1 K/mcL (0.0-1.3); Neutrophils # 8.3 K/mcL (1.6-8.9); Platelet Estimate Normal (Normal)
[2017-10-29] MEDS: *HR* Heparin 5,000 UNIT/ML VIAL SQ SCH ×2 (06:00→17:00)
[2017-10-29] MEDS ORDERED: Aminoglycoside Consult 1 EACH MC ONE (07:28)
[2017-10-29] MEDS: Insulin LISPRO 300 UNITS/3 ML VIAL SQ SCH ×4 (08:18→22:06)
[2017-10-29] MEDS: Loratadine 10 MG TABLET PO SCH (08:19)
[2017-10-29] MEDS: (Exemestane [Aromasin] 25 MG) PO SCH (08:19)
[2017-10-29] MEDS: Insulin DETEMIR 100 UNIT/ML X5UNITS SQ SCH ×2 (09:39→22:06)
[2017-10-29] MEDS: Piperacillin/Tazobactam 3.375 GM/200 ML BAG IVPB SCH ×3 (09:39→23:17)
--- NOTE | 2017-10-29 13:21 | Internal Med Progress Note ---
Date of Encounter: 10/29/17 Time of Encounter: 09:55 - Assessment and plan (1) Sepsis Current Visit: Yes Status: Resolved Assessment and plan: Sepsis appears to resolved. It is most likely secondary to right lower lobe pneumonia. Lactic acid was not elevated on arrival, patient has no leukocytosis. Legionella was negative. Sputum culture, flu swab, and blood cultures 2 were negative. Patient is currently being treated with IV Zosyn, vancomycin. Continue IV antibiotics and monitor labs and patient condition. Chest X-Ray 10/26/17 14:49 IMPRESSION: Right lower lobe pneumonia D/ / Juan Pablo Ferguson MD / Juan Pablo Ferguson MD Interpreting Provider: Juan Pablo Ferguson MD Qualifiers: Qualified Code(s): A41.9 - Sepsis, unspecified organism (2) Pneumonia Current Visit: Yes Status: Acute Assessment and plan: Patient with CPAP. No recent hospitalizations. Patient admitted with source of infection, fever, tachycardia, leukocytosis. Sepsis has resolved. Patient with wheezing heard in bilateral posterior bases today. She is requiring continuous oxygen. Normally wears 3 L oxygen at night. Continue IV vancomycin and Zosyn, duo nebs, oxygen. Pulse ox with vital signs Plan as above. Qualifiers: Pneumonia type: due to unspecified organism Laterality: right Lung location: lower lobe of lung Qualified Code(s): J18.1 - Lobar pneumonia, unspecified organism (3) Urinary tract infection Current Visit: Yes Status: Resolved Assessment and plan: Urine collected on 10/26/17 indicative of UTI, , however urine culture was not indicated. Qualifiers: Urinary tract infection type: acute cystitis Hematuria presence: without hematuria Qualified Code(s): N30.00 - Acute cystitis without hematuria (4) DM (diabetes mellitus) Current Visit: Yes Status: Chronic Assessment and plan: Continue sliding scale insulin, Accu-Cheks before meals at bedtime, diabetic diet. A1c is 8.0%. Qualifiers: Diabetes mellitus type: type 2 Diabetes mellitus complication status: without complication Diabetes mellitus intermediate manager insulin use: with intermediate manager use Qualified Code(s): E11.9 - Type 2 diabetes mellitus without complications ; Z79.4 - [facility] (current) use of insulin; Z79.4 - [facility] (current) use of insulin; Z79.4 - [facility] (current) use of insulin; Z79.4 - [facility] ( current) use of insulin (5) COPD (chronic obstructive pulmonary disease) Current Visit: Yes Status: Acute Assessment and plan: Acute exacerbation. Patient is already on antibiotics, continue duo nebs, continue oxygen. Qualifiers: Emphysema type: unspecified Qualified Code(s): J43.9 - Emphysema, unspecified (6) DVT prophylaxis Current Visit: Yes Status: Acute Assessment and plan: Subcutaneous heparin. (7) Hypoxia Current Visit: Yes Status: Acute Assessment and plan: Acute on chronic. Patient wears CPAP at night, patient requires 3 L of oxygen at night at home. Currently she is requiring continuous oxygen at 3 L. We will try to wean prior to discharge. (8) Anxiety with depression Current Visit: Yes Status: Chronic Assessment and plan: Chronic. Continue home medications. - Time Spent With Patient less than 15 minutes - Subjective Interval history: Patient was seen and assessed at bedside at 9:55 AM. Patient reports that she needs a new CPAP at home, her [employer] in when she was moving. She states that she is going to call to get an appointment have anyone delivered. She is requiring supplemental oxygen continuously while admitted. At home, she normally wears 3 L at night. She denies any headache, chest pain, blurred vision, dizziness abdominal pain, nausea, vomiting, diarrhea. - Constitutional Vitals: Temp Pulse Resp BP Pulse Ox 99.5 F 90 18 109/61 92 10/29/17 11:05 10/29/17 11:05 10/29/17 11:05 10/29/17 11:05 10/29/17 11:05 General appearance: Present: cooperative, A&O X 3, morbidly obese, pleasant, no acute distress, answers questions appropriately - Head Head exam: Present: atraumatic, normal inspection, normocephalic - Eye Eye exam: Present: normal appearance, conjuntiva pink, sclera anicteric - Neck Neck exam general surgery: Present: supple, trachea midline. Absent: lymphadenopathy - Respiratory Respiratory exam: Present: decreased breath sounds, CTAB. Absent: accessory muscle use, rales, respiratory distress, rhonchi, wheezes - Cardiovascular Cardiovascular exam: Present: RRR, +S1, +S2. Absent: diastolic murmur, gallop, rubs, systolic murmur - GI/Abdominal GI/Abdominal exam: Present: normal bowel sounds, soft. Absent: distended, hepatomegaly, tenderness - Extremities Exam Extremities exam: Present: normal capillary refill, warm, radial pulses palpable and symmetrical. Absent: calf tenderness, cyanotic, pedal edema, tenderness - Neurological Exam Neurological exam: Present: alert, oriented X3, no focal deficits. Absent: facial droop, speech deficit - Skin Skin exam: Present: dry, intact, warm. Absent: rash Internal Medicine: Result - Labs CBC & Chem 7: 10/29/17 03:40 10/29/17 03:40 Labs: Short CBC 10/29/17 Range/Units 03:40 WBC 10.6 (4.3-11.1) K/mcL Hgb 10.8 L (11.5-15.4) g/dL Hct 33.9 L (35.3-44.9) % Plt Count 212 (140-400) K/mcL Neutrophils # 8.3 (1.6-8.9) K/mcL BMP 10/29/17 03:40 Sodium 136 Potassium 3.6 Chloride 94 L Carbon Dioxide 38 H BUN 6 Creatinine 0.62 Glucose 290 H Calcium 8.9 Consult Discharge Plan - Plan Referrals: NONE,PCP [Primary Care Provider] -
--- NOTE | 2017-10-29 15:59 | Electrocardiograph Report ---
[address] [address] Test Date: 2017-10-26 Pat Name: Leyla Park Department: [id number] Room: 3B46 Gender: F Signal Timer: MSC : 1960 Requested By: Alfred Carson Order Number: [id number] Reading MD: Viet Sosa Measurements Intervals [place] Rate: 104 P: 22 KS: 170 QRS: -25 QRSD: 102 T: 61 QT: 326 QTc: 386 Interpretive Statements SINUS TACHYCARDIA BORDERLINE LEFT AXIS DEVIATION NONSPECIFIC T-WAVE ABNORMALITY ABNORMAL RHYTHM ECG Electronically Signed On 10-29-2017 15:57:01 EST by Viet Sosa
[2017-10-29] MEDS: traZODone 50 MG TABLET PO SCH (22:05)
[2017-10-30] MEDS: Ipratropium/Albuterol Neb 3 ML IH SCH ×6 (04:03→23:18)
[2017-10-30] MEDS: *HR* Acetylcysteine 20% 600 MG/3 ML ORAL SYRINGE PO SCH ×3 (06:03→17:41)
[2017-10-30] MEDS: *HR* Heparin 5,000 UNIT/ML VIAL SQ SCH ×2 (06:03→17:41)
[2017-10-30] MEDS: Piperacillin/Tazobactam 3.375 GM/200 ML BAG IVPB SCH (06:04)
[2017-10-30 08:43] LABS: BUN/Creatinine Ratio 12 (6-26); Blood Urea Nitrogen 7 mg/dL (6-20); Calcium 9.1 mg/dL (8.6-10.3); Carbon Dioxide 38 mEq/L (23-29); Chloride 97 mEq/L (98-107); Glucose 245 mg/dL (70-105); Osmolality,Calculated 296 (280-300); Sodium 140 mEq/L (136-145); eGFR For African Americans > 60 (> 60); eGFR For Non-African Americans > 60 (> 60)
[2017-10-30] MEDS: Loratadine 10 MG TABLET PO SCH (09:00)
[2017-10-30] MEDS: (Exemestane [Aromasin] 25 MG) PO SCH (09:01)
[2017-10-30] MEDS: Insulin LISPRO 300 UNITS/3 ML VIAL SQ SCH ×3 (09:01→17:40)
[2017-10-30] MEDS: Insulin DETEMIR 100 UNIT/ML X5UNITS SQ SCH ×2 (09:06→20:05)
[2017-10-30 11:41] LABS: Basophils % 0.5 %; Eosinophils # 0.2 K/mcL (0.0-0.6); Eosinophils % 1.8 %; Hematocrit 35.3 % (35.3-44.9); Hemoglobin 11.1 g/dL (11.5-15.4); Immature Granulocytes % 6.7 % (0-4); Immature Platelets 3.3 % (1.1-6.1); Lymphocytes # 0.4 K/mcL (0.6-4.6); Lymphocytes % 5.1 %; Mean Corpuscular HGB Conc 31.4 g/dL (31.6-35.5); Mean Corpuscular Hemoglobin 27.3 pg (28.0-33.3); Mean Corpuscular Volume 86.9 fL (83.0-100.0); Mean Platelet Volume 10.2 fL (9.4-12.4); Monocytes # 0.6 K/mcL (0.0-1.3); Monocytes % 7.3 %; Neutrophils # 6.6 K/mcL (1.6-8.9); Platelet Count 225 K/mcL (140-400); Red Blood Count 4.06 M/mcL (3.82-4.97); Red Cell Distribution Width 13.1 % (11.5-14.5); Segmented Neutrophils % 78.6 %
[2017-10-30 12:28] LABS: Platelet Estimate Normal (Normal)
[2017-10-30] MEDS: levoFLOXacin 750 MG TABLET PO SCH (13:14)
--- NOTE | 2017-10-30 18:23 | Discharge Summary ---
Date of Encounter: 10/30/17 Time of Encounter: 10:15 - Discharge Diagnosis (1) Pneumonia Priority: Primary Status: Acute Comments: Patient with community-acquired pneumonia. She has had no recent hospitalizations. Patient met sepsis criteria on arrival, the symptoms have resolved. Patient looks and feels better today. She has faint wheezing in bilateral posterior bases, lungs are clear in apices and anterior tanner. Patient is still requiring 2 L of oxygen. At home, patient only wears 3 L at night. We will need to requalify her for continuous need. Antibiotics have been changed. Discussed this with pharmacistAlison. Vancomycin and Zosyn have been stopped. Patient has been started on Levaquin 750 mg by mouth daily. Patient will be discharged with prescription for same. Leukocytosis has resolved, patient's vital signs are stable. Chest X-Ray 10/26/17 14:49 IMPRESSION: Right lower lobe pneumonia D/ / Juan Pablo Ferguson MD / Juan Pablo Ferguson MD Interpreting Provider: Juan Pablo Ferguson MD Qualifiers: Pneumonia type: due to unspecified organism Laterality: right Lung location: lower lobe of lung Qualified Code(s): J18.1 - Lobar pneumonia, unspecified organism (2) Sepsis Priority: Secondary Status: Resolved Comments: Resolved. Qualifiers: Sepsis type: sepsis due to unspecified organism Qualified Code(s): A41.9 - Sepsis, unspecified organism (3) Urinary tract infection Priority: Secondary Status: Resolved Comments: Urine on admission has small amount leukocyte esterase, negative for nitrites and few bacteria. No culture was indicated. Qualifiers: Urinary tract infection type: acute cystitis Hematuria presence: without hematuria Qualified Code(s): N30.00 - Acute cystitis without hematuria (4) DM (diabetes mellitus) Priority: Secondary Status: Chronic Comments: A1c is 8.0%. Continue home dose of medications, Accu-Chek regimen. Continue diabetic diet at home. Patient with expected hyperglycemia due to steroid use. Corrective insulin scale has been increased to high dose. Qualifiers: Diabetes mellitus type: type 2 Diabetes mellitus complication status: without complication Diabetes mellitus longterm insulin use: with termite technician use Qualified Code(s): E11.9 - Type 2 diabetes mellitus without complications ; Z79.4 - halfway (current) use of insulin; Z79.4 - halfway (current) use of insulin; Z79.4 - termite exterminator helper (current) use of insulin; Z79.4 - termite exterminator helper ( current) use of insulin (5) COPD (chronic obstructive pulmonary disease) Priority: Secondary Status: Acute Comments: Acute exacerbation. Continue antibiotics, DuoNeb's and oxygen as needed. Qualifiers: Emphysema type: unspecified Qualified Code(s): J43.9 - Emphysema, unspecified (6) Hypoxia Priority: Secondary Status: Chronic Comments: Acute on chronic. Patient wears CPAP at night and requires 3 L of oxygen at night. Currently patient is requiring 2 L. We will continue to try to wean overnight Will try to qualify for continuous home O2. (7) Anxiety with depression Priority: Secondary Status: Chronic Comments: Chronic. Continue medications. (8) Morbid obesity with BMI of 40.0-44.9, adult Priority: Secondary Status: Chronic Comments: Chronic. Lifestyle changes. (9) DVT prophylaxis Priority: Secondary Status: Acute Comments: Heparin subcutaneous. - Discharge Medications Prescriptions: Benzonatate [Tessalon] 200 mg PO TID PRN #30 capsule PRN Reason: Cough levoFLOXacin [Levaquin] 750 mg PO DAILY #7 tablet Home Medications: ALPRAZolam [Xanax 0.5 MG Tablet] 0.5 mg PO HS PRN 10/26/17 [History] Albuterol Sulfate [Ventolin Hfa] 2 puff IH Q6H PRN 10/26/17 [History] Cetirizine HCl [All Day Allergy] 10 mg PO DAILY 10/26/17 [History] Duloxetine HCl [Cymbalta] 60 mg PO DAILY 10/26/17 [History] Exemestane [Aromasin] 25 mg PO DAILY 10/26/17 [History] Insulin ASPART [NovoLOG] 2 - 10 unit SQ TIDWM 10/26/17 [History] Insulin Glargine,Hum.rec.anlog [Lantus Solostar] 60 unit SQ BID 10/26/17 [ History] Levothyroxine Sodium [Levoxyl] 100 mcg PO DAILY 10/26/17 [History] Pantoprazole Sodium [Protonix] 40 mg PO DAILY 12/30/17 [History] Sertraline [Zoloft] 100 mg PO DAILY 10/26/17 [History] Trazodone HCl 100 mg PO HS 10/26/17 [History] metFORMIN [Glucophage] 500 mg PO BID 10/26/17 [History] Benzonatate [Tessalon] 200 mg PO TID PRN #30 capsule 10/30/17 [Rx] levoFLOXacin [Levaquin] 750 mg PO DAILY #7 tablet 10/30/17 [Rx] Allergies/Adverse Reactions: 3 Allergy/AdvReac Type Severity Reaction Status Date / Time No Known Allergies Allergy Verified 02/02/16 21:24 Date of admission: 10/26/17 17:31 Primary care physician: PCP NONE Discharging clinician: Alison Zarate Anticipated date of discharge: 10/30/17 - Patient Status Disposition: Home, Self-Care Condition: Good Functional capacity at discharge: independent ambulation Overall status at discharge: patient is progressing back to baseline - Discharge Instructions Follow Up With: NONE,PCP [Primary Care Provider] - Additional Instructions: Please follow up with primary care provider in the next week to 10 days for a follow-up visit. Particular antibiotics and cough medicine as directed Return to the ER as needed for any other problems or concerns, or if your symptoms return or worsen. Continue your normal home medications Resume her normal activities and diet as tolerated. - Diet and Activity Activity: increase activity as tolerated Diet: advance to your usual diet Hospital course: Ms. Park is a 56 year old female Please see assessment and plan for hospital course. - Time Spent with Patient Total time spent providing and/or coordinating discharge services: Less than 30 minutes - Constitutional Vitals: Temp Pulse Resp BP Pulse Ox 98.7 F 89 20 123/76 91 10/30/17 15:28 10/30/17 15:28 10/30/17 15:35 10/30/17 15:28 10/30/17 15:35 General appearance: Present: cooperative, A&O X 3, morbidly obese, pleasant, no acute distress, obese, answers questions appropriately - Head Head exam: Present: atraumatic, normal inspection, normocephalic - Eye Eye exam: Present: conjuntiva pink, sclera anicteric - Neck Neck exam general surgery: Present: supple, trachea midline. Absent: lymphadenopathy, tenderness - Respiratory Respiratory exam: Present: decreased breath sounds, CTAB. Absent: accessory muscle use, chest wall tenderness, rales, respiratory distress, rhonchi, wheezes - Cardiovascular Cardiovascular exam: Present: RRR, +S1, +S2. Absent: diastolic murmur, gallop, rubs, systolic murmur - GI/Abdominal GI/Abdominal exam: Present: normal bowel sounds, soft, no peritoneal signs. Absent: distended, hepatomegaly, tenderness - Extremities Exam Extremities exam: Present: normal capillary refill, warm, radial pulses palpable and symmetrical. Absent: calf tenderness, cyanotic, pedal edema - Neurological Exam Neurological exam: Present: alert, oriented X3, no focal deficits. Absent: facial droop, speech deficit - Skin Skin exam: Present: dry, intact, normal color, warm. Absent: rash
[2017-10-30] MEDS: Vancomycin 2,000 MG in D5% in Water 500 ML IVPB SCH (19:24)
[2017-10-30] MEDS: traZODone 50 MG TABLET PO SCH (20:05)
[2017-10-30] MEDS ORDERED: Insulin LISPRO 300 UNITS/3 ML VIAL SQ SCH (21:00)
[2017-10-31] MEDS ORDERED: Insulin LISPRO 300 UNITS/3 ML VIAL SQ SCH
[2017-10-31] MEDS: *HR* Acetylcysteine 20% 600 MG/3 ML ORAL SYRINGE PO SCH ×3 (00:22→14:32)
[2017-10-31] MEDS ORDERED: Acetaminophen 325 MG TABLET PO PRN (00:34)
[2017-10-31] MEDS: Ipratropium/Albuterol Neb 3 ML IH SCH ×4 (03:36→16:00)
[2017-10-31] MEDS: *HR* Heparin 5,000 UNIT/ML VIAL SQ SCH (06:16)
[2017-10-31] MEDS: Loratadine 10 MG TABLET PO SCH (08:14)
[2017-10-31] MEDS: (Exemestane [Aromasin] 25 MG) PO SCH (08:14)
[2017-10-31] MEDS: levoFLOXacin 750 MG TABLET PO SCH (08:14)
[2017-10-31] MEDS: Insulin DETEMIR 100 UNIT/ML X5UNITS SQ SCH (08:16)
[2017-10-31] MEDS: Insulin LISPRO 300 UNITS/3 ML VIAL SQ SCH ×3 (08:17→16:59)
[2017-10-31 09:32] LABS: Bilirubin,Urine Negative (Negative); Blood,Urine Negative (Negative); Color,Urine Yellow (Yellow); Glucose,Urine (UA) Normal (Normal); Ketones,Urine Negative (Negative); Leukocyte Esterase,Urine Negative (Negative); Nitrite,Urine Negative (Negative); PH,Urine 7.5 pH Units (5.0-8.0); Protein,Urine Negative (Neg-Trace); Specific Gravity,Urine 1.014 (1.010-1.025); Urobilinogen,Urine Normal (Normal)
[2017-10-31 09:35] LABS: Bacteria,Urine None Seen per hpf (None-Few); Hyaline Casts,Urine None Seen per lpf (None-Few); RBC,Urine 0-3 per hpf (0-3); Squamous Epithelial Cell,Urine Many per lpf (None-Few)
[2017-10-31 09:39] LABS: Clarity,Urine Clear (Clear)
--- NOTE | 2017-10-31 11:36 | Internal Med Progress Note ---
Date of Encounter: 10/31/17 Time of Encounter: 10:55 - Assessment and plan (1) Pneumonia Current Visit: Yes Status: Acute Assessment and plan: Patient with CAP. No recent hospitalizations. Patient admitted with source of infection, fever, tachycardia, leukocytosis. Sepsis has resolved. Patient with wheezing heard in bilateral posterior bases, however, now has clear , diminished lung sounds throughout. She is requiring continuous oxygen. Normally wears 3 L oxygen at night. Continue Levaquin 750mg po daily. Continue DuoNebs at home Pt has qualified for continuous home 02 Chest X-Ray 10/26/17 14:49 IMPRESSION: Right lower lobe pneumonia D/ / Juan Pablo Ferguson MD / Juan Pablo Ferguson MD Interpreting Provider: Juan Pablo Ferguson MD Qualifiers: Pneumonia type: due to unspecified organism Laterality: right Lung location: lower lobe of lung Qualified Code(s): J18.1 - Lobar pneumonia, unspecified organism (2) Sepsis Current Visit: Yes Status: Resolved Assessment and plan: Sepsis appears to resolved. It is most likely secondary to right lower lobe pneumonia. Lactic acid was not elevated on arrival, patient has no leukocytosis. Legionella was negative. Sputum culture, flu swab, and blood cultures 2 were negative. Patient is currently being treated with po Levaquin 750mg, will continue at home. Chest X-Ray 10/26/17 14:49 IMPRESSION: Right lower lobe pneumonia D/ / Juan Pablo Ferguson MD / Juan Pablo Ferguson MD Interpreting Provider: Juan Pablo Ferguson MD Qualifiers: Sepsis type: sepsis due to unspecified organism Qualified Code(s): A41.9 - Sepsis, unspecified organism (3) Urinary tract infection Current Visit: Yes Status: Resolved Assessment and plan: Urine collected on 10/26/17 indicative of UTI, , however urine culture was not indicated. Pt reported dysuria and labial itching today, urine negative. Pt has been on multiple antibiotics, most likely candidal in nature. Will send home pt with Diflucan. Qualifiers: Urinary tract infection type: acute cystitis Hematuria presence: without hematuria Qualified Code(s): N30.00 - Acute cystitis without hematuria (4) DM (diabetes mellitus) Current Visit: Yes Status: Chronic Assessment and plan: Continue home dose of medications, return to home accucheck schedule, and diabetic diet. Qualifiers: Diabetes mellitus type: type 2 Diabetes mellitus complication status: without complication Diabetes mellitus intermodal owner operator truck driver insulin use: with intermodal owner operator truck driver use Qualified Code(s): E11.9 - Type 2 diabetes mellitus without complications ; Z79.4 - skilled nursing (current) use of insulin; Z79.4 - regional intermodal truck driver (current) use of insulin; Z79.4 - skilled nursing (current) use of insulin; Z79.4 - regional intermodal truck driver ( current) use of insulin (5) COPD (chronic obstructive pulmonary disease) Current Visit: Yes Status: Acute Assessment and plan: Acute exacerbation. Plan as above for pneumonia. Qualifiers: Emphysema type: unspecified Qualified Code(s): J43.9 - Emphysema, unspecified (6) Hypoxia Current Visit: Yes Status: Chronic Assessment and plan: Acute on chronic. Patient wears CPAP at night, patient requires 3 L of oxygen at night at home at night. Qualified for continuous home 02. (7) Anxiety with depression Current Visit: Yes Status: Chronic Assessment and plan: Chronic. Continue home medications. (8) Morbid obesity with BMI of 40.0-44.9, adult Current Visit: Yes Status: Chronic Assessment and plan: LIfestyle modifications encouraged. (9) DVT prophylaxis Current Visit: Yes Status: Acute Assessment and plan: Subcutaneous heparin daily - Time Spent With Patient less than 15 minutes - Subjective Interval history: Patient was seen and assessed at bedside at 10:55 AM. She is requiring supplemental oxygen continuously while admitted and qualified for continuous home 02. At home, she normally wears 3 L at night. She denies any headache, chest pain, blurred vision, dizziness abdominal pain, nausea, vomiting, diarrhea , and states that she feels better today and is ready to go home. - Constitutional Vitals: Temp Pulse Resp BP Pulse Ox 97.3 F L 79 16 107/74 97 10/31/17 11:08 10/31/17 11:08 10/31/17 11:08 10/31/17 11:08 10/31/17 11:08 General appearance: Present: cooperative, A&O X 3, morbidly obese, pleasant, no acute distress, obese, answers questions appropriately - Head Head exam: Present: atraumatic, normal inspection, normocephalic - Eye Eye exam: Present: normal appearance, conjuntiva pink, sclera anicteric - Neck Neck exam general surgery: Present: normal inspection, supple, trachea midline. Absent: lymphadenopathy, tenderness - Respiratory Respiratory exam: Present: CTAB. Absent: accessory muscle use, chest wall tenderness, decreased breath sounds, prolonged expiratory phase, rales, rhonchi , wheezes - Cardiovascular Cardiovascular exam: Present: RRR, +S1, +S2. Absent: diastolic murmur, gallop, rubs, systolic murmur - GI/Abdominal GI/Abdominal exam: Present: normal bowel sounds, soft. Absent: distended, hepatomegaly, tenderness - Extremities Exam Extremities exam: Present: normal capillary refill, normal inspection, warm, radial pulses palpable and symmetrical. Absent: calf tenderness, cyanotic, pedal edema, tenderness - Neurological Exam Neurological exam: Present: alert, oriented X3, no focal deficits. Absent: altered, facial droop, speech deficit - Skin Skin exam: Present: dry, intact, normal color, warm. Absent: rash Internal Medicine: Result - Labs CBC & Chem 7: 10/30/17 10:59 10/30/17 08:10 Labs: Short CBC 10/30/17 Range/Units 10:59 WBC 8.4 (4.3-11.1) K/mcL Hgb 11.1 L (11.5-15.4) g/dL Hct 35.3 (35.3-44.9) % Plt Count 225 (140-400) K/mcL Neutrophils # 6.6 (1.6-8.9) K/mcL Urine 10/31/17 Range/Units 09:21 Urine Color Yellow (Yellow) Urine Clarity Clear (Clear) Urine pH 7.5 (5.0-8.0) pH Units Ur Specific [place] 1.014 (1.010-1.025) Urine Protein Negative (Neg-Trace) mg/dL Urine Glucose (UA) Normal (Normal) mg/dL Consult Discharge Plan - Plan Additional Instructions: Please follow up with primary care provider in the next week to 10 days for a follow-up visit. Particular antibiotics and cough medicine as directed Return to the ER as needed for any other problems or concerns, or if your symptoms return or worsen. Continue your normal home medications Resume her normal activities and diet as tolerated. Referrals: NONE,PCP [Primary Care Provider] - Prescriptions: Benzonatate [Tessalon] 200 mg PO TID PRN #30 capsule PRN Reason: Cough levoFLOXacin [Levaquin] 750 mg PO DAILY #7 tablet
[2017-10-31 15:58] VITALS: BP 112/71
== END 2017-10-31 18:00 | disposition home or self-care (01) | DRG 720 ==
LOC: EMEROO 14:12 → 3BNU 14:12
PROVIDERS: ADMIT Nurse Practitioner; ATTEND Registered Nurse